=== PATIENT | male | born 1990 | race African-American/Black ===

== ENCOUNTER 2021-04-27 14:13 | Emergency (ER) | payer MEDICAID ==
[~2021-04-27] VITALS: Ht 167.6 cm; Wt 72.0 kg
[2021-04-27] MEDS ORDERED: FLUORESCEIN SODIUM 1MG/STRIP RIGHTEYE ONE (17:30)
[2021-04-27] MEDS ORDERED: TETRACAINE 0.5% OPHTH DROPS 4ML RIGHTEYE ONE (17:30)
[2021-04-27] MEDS ORDERED: POLY15DR31 RIGHTEYE (17:36)
[2021-04-27] MEDS ORDERED: IBUP-2029 MT (17:36)
[2021-04-27 17:48] VITALS: BP 118/68
== END 2021-04-27 17:49 | disposition home or self-care (01) ==
LOC: ER 14:13
DX: S05.8X1A Other injuries of right eye and orbit, initial encounter (principal); J45.909 Unspecified asthma, uncomplicated; Z91.041 Radiographic dye allergy status; Y08.89XA Assault by other specified means, initial encounter; Y93.89 Activity, other specified; Y92.018 Other place in single-family (private) house as the place of occurrence of the external cause
CPT/HCPCS: 99283